=== PATIENT | female | born 2000 | race Caucasian/White ===

== ENCOUNTER 2025-02-21 18:02 | Emergency (ER) | payer MEDICAID, SELFPAY ==
--- NOTE | ~2025-02-21 | US_ITS ---
CLINICAL HISTORY: GB, , CBD, RUQ pain US GALLBLADDER Comparison: None Findings: The common bile duct measures 2.7 mm. No gallbladder stones or sludge. No gallbladder wall thickening or pericholecystic fluid. There is no sonographic Mcclellan sign. IMPRESSION: 1. No cholelithiasis, acute cholecystitis or common bile ductal dilatation. This document has been electronically signed by: June Arcos DO on 02/21/2025 20:10:07
[2025-02-21 18:14] VITALS: BP 117/66; PULSE 86; RESP 18; TEMP 36.7; O2SAT 100; BMI 40.6
--- NOTE | 2025-02-21 18:14 | ED.PREGNANCY ---
HPI - General Chief complaint: General Medical Stated complaint: rt side pain/7mo Time Seen by Provider: 02/21/25 18:27 Source: patient Limitations: no limitations History of Present Illness ED Provider: Milli Hunt PA-C HPI Narrative: 25-year-old female who is currently approximately 28 weeks , presents with abdominal pain since earlier today. Pain over right upper quadrant with radiation to the mid back, her symptoms are intermittent. Patient describes the discomfort as a cramping sensation. Associated dysuria and nausea. Denies fever. Patient thinks her symptoms may have occurred after eating a meal. Denies history of kidney stones or gross hematuria. No vaginal discharge or bleeding. Related Data Previous Rx's ?Medication ?Instructions ?Recorded sucralfate 100 mg/mL oral 10 ml PO QID PRN indigestion #300 02/21/25 suspension (Carafate) mL Allergies Allergy/AdvReac Type Severity Reaction Status Date / Time No Known Allergies Allergy Verified 02/21/25 18:15 Review of Systems Review of Systems: Yes all other systems are reviewed and are negative Constitutional: Constitutional: Denies fatigue and Denies fever(s) Cardiovascular: Cardiovascular: Denies chest pain and Denies dyspnea Respiratory: Respiratory: Denies cough and Denies dyspnea Gastrointestinal: Gastrointestinal: Reports abdominal pain, Reports nausea and Denies vomiting Genitourinary: Genitourinary: Denies hematuria, Reports dysuria, Denies pelvic pain and Denies vaginal discharge Endocrine: Endocrine: Denies fatigue PMFSH Past Medical History Attestation statement: The following information was validated with the patient. Social History Social History Smoked in Last 30 Days: No Use of substances other than those prescribed or required for medical reasons: No Advance Directives: No Advance Directives Information Provided: No Do you have a plan to hurt others: No Plan Patient : Yes Physical Exam Vital Signs: Vital Signs: Last Vital Signs Temp 98.0 F 02/21/25 18:14 Pulse 86 02/21/25 18:14 Resp 16 02/21/25 18:54 BP 117/66 02/21/25 18:14 Pulse Ox 100 02/21/25 18:14 O2 Del Method Room Air 02/21/25 18:14 BMI result Body Mass Index 40.6 Const: Other: Alert Orientation/consciousness: patient oriented x3 Resp: Effort & Inspection: normal respiratory effort Cardio: Other: Normal peripheral perfusion GI: Other: Abdomen is soft, mild tenderness that has focal to the right upper abdomen without guarding Skin: Other: Warm dry no rash Neuro: General: patient oriented x3, gait normal, no focal motor deficits and CN's II-XI intact bilaterally Psych: Other: Calm cooperative Course Course Course Narrative: This is a Rapid Medical Exam performed in triage by Caprice Montenegro PA-C. Full HPI, ROS and PE to be performed by primary ED provider. 25 yo F @ 28 wks gestation presenting to the ED c/o right sided abd pain and back pain, intermittent, x 12noon today. OBGYN in [place]. +frequent urination & pressure when she urinates. denies vaginal bleeding or d/c. Plans to deliver at [facility] PE: gravid uterus, abd soft & nontender Plan: Labs, UA Medical Decision Making Medical Decision Making [facility] Narrative: 25-year-old female who is currently approximately 28 weeks , presents with abdominal pain since earlier today. Pain over right upper quadrant with radiation to the mid back, her symptoms are intermittent. Patient describes the discomfort as a cramping sensation. Associated dysuria and nausea. Denies fever. Patient thinks her symptoms may have occurred after eating a meal. Denies history of kidney stones or gross hematuria. No vaginal discharge or bleeding. Patient also states she has had intermittent constipation throughout her , last bowel movement yesterday, it was minimal. Problem: History: Per patient I have considered the following differential diagnoses: Renal colic, pyelonephritis, UTI, biliary colic, cholecystitis Plan: Given distribution of discomfort I am considering underlying biliary pathology versus renal colic. Performed bedside renal ultrasound, the patient has mild hydronephrosis which is bilateral, this is likely physiologic from her . No CVA tenderness, is afebrile, likely not renal colic as she is very well-appearing. Screening labs including LFTs and a urinalysis, serum quant we will be obtained. Obtaining an ultrasound of the right upper quadrant. At this time the patient is asymptomatic. She does not require antiemetic or analgesia. I have independently reviewed the following tests: Labs: No leukocytosis, not anemic, no electrolyte abnormality, LFTs are normal, beta hCG 7672, urine not infected Ultrasound right upper quadrant:Findings: The common bile duct measures 2.7 mm. No gallbladder stones or sludge. No gallbladder wall thickening or pericholecystic fluid. There is no sonographic Mcclellan sign. IMPRESSION: 1. No cholelithiasis, acute cholecystitis or common bile ductal dilatation. This document has been electronically signed by: June Arcos DO on 02/21/2025 20:10:07 Lab Data 02/21/25 18:28 02/21/25 18:28 Labs: Lab Results 02/21/25 02/21/25 Range/Units 18:28 19:18 WBC 9.8 (4.8-10.8) X10*3/uL RBC 3.89 L (4.20-5.50) X10*6/uL Hgb 11.0 L (12.0-16.0) g/dl Hct 31.9 L (37.0-47.0) % MCV 82.0 (80.0-98.0) fL MCH 28.3 (27.0-33.0) pg MCHC 34.5 (31.0-35.0) g/dl RDW 13.2 (11.0-16.0) % Plt Count 221 (160-400) X10*3/uL MPV 9.7 (9.4-12.3) fL Immature Gran % (Auto) 0.2 (0.0-0.4) % Neut % (Auto) 69.0 (45-73) % Lymph % (Auto) 23.1 (20-40) % [place] % (Auto) 5.9 (2-11) % Eos % (Auto) 1.6 (0-4) % Baso % (Auto) 0.2 (0-2) % Lymph # (Auto) 2.3 (1.2-4.9) X10*3/uL [place] # (Auto) 0.6 (0.1-1.2) X10*3/uL Eos # (Auto) 0.2 (0.0-0.4) X10*3/uL Baso # (Auto) 0.0 (0.0-0.2) X10*3/uL Abs Immat Gran (auto) 0.02 (0.00-0.03) X10*3/uL Absolute Neuts (auto) 6.7 (2.0-8.3) x10*3/uL Absolute Nucleated RBC 0.000 (0.0-0.012) X10*3/uL Nucleated RBC % (auto) 0.0 (0.0-0.2) /100WBC Sodium 138 (135-145) mmol/L Potassium 3.4 (3.3-5.1) mmol/L Chloride 107 (96-108) mmol/L Carbon Dioxide 24 (22-29) mmol/L Anion Gap 10 L (12-20) BUN 4 L (9-16) mg/dL Creatinine 0.48 L (0.5-1.4) mg/dL Estim Creat Clear Calc 176.4 Estimated GFR > 60 Random Glucose 86 (60-115) mg/dL Calcium 9.3 (8.4-10.2) mg/dL Magnesium 1.8 (1.6-2.6) mg/dL Total Bilirubin 0.2 (0.0-1.0) mg/dL Direct Bilirubin < 0.2 (0.0-0.5) mg/dL AST 17 (5-31) U/L ALT 13 (0-31) U/L Alkaline Phosphatase 97 (39-117) U/L Total Protein 7.2 (6.5-8.0) g/dL Albumin 3.9 (3.5-5.0) g/dL Lipase 31 (8-78) U/L Beta HCG, Quant 7672 mIU/mL Urine Color Yellow Urine Appearance Clear Urine pH 7.0 (5.0-9.0) Ur Specific [place] 1.010 (1.005-1.025) Urine Protein Negative (Neg-Trace) mg/dL Urine Glucose (UA) Negative (Negative) mg/dL Urine Ketones Negative (Negative) mg/dL Urine Blood Negative (Negative) Urine Nitrite Negative (Negative) Ur Leukocyte Esterase Negative (Negative) Procedures Procedure Narrative Procedure Narrative: Bedside heart rate obtained via nursing Doppler, heart rate 138 active activity visualized on my bedside ultrasound Renal ultrasound Mild bilateral hydro,bladder volume approximately 500 ml Discharge Plan Discharge Clinical Impression: and not yet delivered in third trimester, Constipation, Abdominal pain Patient Disposition: Home, Self-Care Instructions: Constipation (ED), Abdominal Pain in (ED) Additional Instructions: All of your screening labs were normal including urinalysis. The ultrasound of your abdomen was normal as well, you do not have an infection of the gallbladder there were also no gallstones. Given you are having constipation, with upper abdominal discomfort, this is likely indigestion. See home care instructions. Use the Carafate as needed for upper abdominal discomfort, use the OTC milk of magnesia per package instructions, until you begin having normal bowel movements. Continue to follow up with your field sales engineer. Prescriptions: New sucralfate [Carafate] 100 mg/mL suspension 10 ml PO QID PRN (Reason: indigestion) Qty: 300 0RF Rx Instructions: swish in mouth and swallow; use after food/drink Print Language: Emirati
[2025-02-21 18:31] LABS: MANUAL DIFF FLAG NO
[2025-02-21 18:35] LABS: Basophils Percent Auto 0.2 % (0-2); Eosinophils Absolute Auto 0.2 X10*3/uL (0.0-0.4); Eosinophils Percent Auto 1.6 % (0-4); Hematocrit 31.9 % (37.0-47.0); Imm Gran Abs Auto 0.02 X10*3/uL (0.00-0.03); Imm Gran Pct Auto 0.2 % (0.0-0.4); Lymphocytes Absolute Auto 2.3 X10*3/uL (1.2-4.9); Lymphocytes Percent Auto 23.1 % (20-40); Mean Corpuscular HGB Conc 34.5 g/dl (31.0-35.0); Mean Corpuscular Hemoglobin 28.3 pg (27.0-33.0); Mean Platelet Volume 9.7 fL (9.4-12.3); Monocytes Absolute Auto 0.6 X10*3/uL (0.1-1.2); Monocytes Percent Auto 5.9 % (2-11); Neutrophils Absolute Auto 6.7 x10*3/uL (2.0-8.3); Platelet Count 221 X10*3/uL (160-400); Red Blood Count 3.89 X10*6/uL (4.20-5.50); Red Cell Distribution Width 13.2 % (11.0-16.0); White Blood Count 9.8 X10*3/uL (4.8-10.8)
--- OUTSIDE RECORDS SUMMARY | 2025-02-21 18:43 | XMS_ITS | Clinical Summary ---
Author Organization [facility] Address [address] [place] [address] Phone Care Team Providers Care Fitter Type Bar And Segment Name Role Phone Unavailable Primary Care Provider Unavailabl e Allergies No known active allergies Medications No known medications Active Problems Problem Noted Date Diagnosed Date Acne 12/13/2015 Assessment & Plan (06/02/2017 2:19 PM EDT): Pt with papular acne on face - forehead and cheeks. Some small pustules. Currently using an OTC acne face wash. Recommended changing to Benzoyl Peroxide 5% wash. Also ordered topical tretinoin to be used in thin layer. Recommended starting both treatments as [id number] use, may increased to daily as tolerated. Stop use if skin becomes red or irritated. Follow-up in 6 weeks for re-check. Handout with instructions provided. Body mass index, pediatric, greater than or equal to 95th percentile for age 1108/18/2010 Assessment & Plan (06/02/2017 2:05 PM EDT): Discussed BMI and associated risks. Pt is currently not very active. Reviewed exercise and dietary recommendations at length to promote health choices. Immunizations Immunization Administration Dates Next Due DTaP / HiB / IPV 08/12/2010 HPV, Quadrivalent 12/15/2013,09/08/2013,01/29/20 10 Hep A, ped/adol 09/16/2011,01/10/2010 Hep B, ped/adol 08/10/2011,08/12/2010,01/10/2010 IPV 08/10/2011,08/12/2010,01/28/2010 Influenza, injectable, triva lent, preservative free 09/17/2014 Influenza, intranasal, trivalent 12/13/2015,03/2013,08/18/2010 MMR 09/16/2011,01/10/2010 Meningococcal Conj (Menactra) MCV4P 06/02/2017,1 11/09/2012 PPD Test 08/18/2010 Td (adult) (MBL), 2 Lf tetan us toxoid, PF, adsorbed 09/08/2013,01/28/2010 Tdap 08/10/2011 Varicella 09/16/2011,01/10/2010 Social History Tobacco Use Types Packs/Day Years Used Date Smoking Tobacco: Never Comments:Never Smoker Alcohol Use Standard Drinks/Week Comments No 0 (1 standard drink = 0.6 oz pur e alcohol) Comments No Sex and Gender Information Value Date Recorded Sex Assigned at Not on file Legal Sex Female 4:16 PM EST Gender Identity Not on file Sexual Orientation Not on file Last Filed Vital Signs Vital Sign Reading Time Taken Comments Blood Pressure 110/80 06/02/2017 9:14 AM EDT Pulse 88 06/02/2017 9:14 AM EDT Temperature 37.1 ??C (98.7 ??F) 02/14/2016 3:28 PM ED T Respiratory Rate - - Oxygen Saturation - - Inhaled Oxygen Concentration - - Weight 76.4 kg (168 lb 8 oz) 06/02/2017 9:14 AM EDT Height 149.9 cm (4' 11 ) 06/02/2017 9:14 AM EDT Body Mass Index 34.03 06/02/2017 9:14 AM EDT Plan of Treatment Health Maintenance Due Date Last Done Comments DTaP,Tdap,and Td Vaccines (5 - Td or Tdap) 09/08/2023 09/08/2013, 08/10/2011, 08/12/2010, Additional history exists Influenza Vaccines (#1) 2024 12/13/19 16, 09/17/2014, 09/08/2013, Additional history exists COVID-19 Vaccine ( season) 2024 HIB Vaccines Aged Out 08/12/2010 No longer eligi ble based on patient's age to complete this topic Hepatitis B Vaccines Completed 08/10/2011, 08/12/2010, 01/10/2010 IPV Vaccines Completed 08/10/2011, 06/2010, 08/12/2010, Additional history exists Hepatitis A Vaccines Completed 09/16/2011, 01/11/20 10 MMR Vaccines Completed 09/16/2011, 01/10/2010 Varicella Vaccines Completed 09/16/2011, 01/10/2010 HPV Vaccines Completed 12/15/2013, 03/2013, 01/28/2010 Meningococcal Vaccine Completed 06/02/2017, 013 Men B Vaccine Aged Out No longer elig ible based on patient's age to complete this topic Pneumococcal Vaccine Aged Out No long er eligible based on patient's age to complete this topic
--- OUTSIDE RECORDS SUMMARY | 2025-02-21 18:43 | XMS_ITS | Clinical Summary ---
Author Organization [email or web address] [facility] Address [address] [place] [address] [address] [place] [address] Care Team Providers Care Perpetual Inventory Clerk Name Role Phone Unavailable Primary Care Provider Unavailabl e Allergies No known active allergies Medications No known medications Social History Tobacco Use Types Packs/Day Years Used Date Smoking Tobacco: Never Smokeless Tobacco: Never Tobacco Cessation:Counseling Given: Not Answered Comments Unknown Sex and Gender Information Value Date Recorded Sex Assigned at Female 08/03/2022 10:33 AM EDT Legal Sex Female 10:33 AM EDT Gender Identity Female 08/03/2022 10:33 AM EDT Sexual Orientation Choose not to disclose 2021 10:33 AM EDT Last Filed Vital Signs Vital Sign Reading Time Taken Comments Blood Pressure 124/77 02/18/2023 8:07 AM EDT Pulse 77 02/18/2023 8:07 AM EDT Temperature - - Respiratory Rate - - Oxygen Saturation - - Inhaled Oxygen Concentration - - Weight - - Height - - Body Mass Index - - Plan of Treatment Health Maintenance Due Date Last Done Comments Dental X-Ray: Full Mouth 2000 Depression Screening 2000 HIV Screening 2000 Lipid Panel 2000 SDOH Screening 2000 Disability Screening 2000 Alcohol/Substance Use Screening 2012 Family Planning (PISQ) 02/14/2015 Hepatitis C Screening 02/14/2018 Pap Smear 02/14/2021 Dental Oral Exam 08/22/2023 02/18/2023, 12/15/2017 Dental Prophylaxis 08/22/2023 02/18/2023, 12/15/2017 Dental X-Ray: Bitewings 02/20/2024 02/18/2023, 12/15 Tobacco Screening 03/16/2024 03/16/2023 COVID-19 Vaccine (4 - season) 2024 11/28/2021, 01/20/2021, 12/28/2020 Influenza Vaccine (#1) 2024 6, 09/17/2014, 09/08/2013, Additional history exists DTaP/Tdap/Td Vaccines (6 - Td or Tdap) 03/30/2033 03/30/2023, 09/08/2013, 08/10/2011, Additional history exists Zoster Vaccines (1 of 2) 02/14/2050 RSV Patients and Patients Aged 60 years or older (1 - 1-dose 75+ series) 02/14/2075 HIB Vaccines Aged Out 08/12/2010 No longer eligi ble based on patient's age to complete this topic Hepatitis B Vaccines Completed 08/10/2011, 08/12/2010, 01/10/2010 IPV Vaccines Completed 08/10/2011, 06/2010, 08/12/2010, Additional history exists Hepatitis A Vaccines Completed 09/16/2011, 01/11/20 10 HPV Vaccines Completed 12/15/2013, 03/2013, 01/28/2010 Meningococcal Vaccine Completed 06/02/2017, 013 Meningococcal B Vaccine Aged Out No l onger eligible based on patient's age to complete this topic Pneumococcal Vaccine: Pediatrics (0 to 5 Years) and At-Risk Patients (6 to 49) Years) Aged Out No longer eligible based on patient's age to complete this topic RSV under 20 months Aged Out No longe r eligible based on patient's age to complete this topic Rotavirus Vaccines Aged Out No longer eligible based on patient's age to complete this topic Procedures Procedure Name Priority Date/Time Associated Diagnosis Comments PROPHYLAXIS - ADULT Routine 02/18/2023 8 :00 AM EDT Encounter for dental examination BITEWINGS - 4 RADIOGRAPHIC IMAGES Routine 02/18/2023 8:00 AM EDT Encounter for dental examination PERIODIC ORAL EVALUATION - ESTABLISHED PATIENT Routine 02/18/2023 8:00 AM EDT from Last 3 Months or Most Recently Relevant to Health Maintenance Insurance [place] ADULT DENTAL - [facility] FULL (MEDICAID)
--- OUTSIDE RECORDS SUMMARY | 2025-02-21 18:43 | XMS_ITS | Encounter Summary ---
Author Organization [facility] Address [address] [place] [address] Phone Care Team Providers Care Electric Switch Repairer Name Role Phone Denita Lima MD Primary Care Provider [phone] Encounter Details Date Type Department Care Team (Late st Contact Info) Description 12/15/2013 Nurse Only [address] [address] Social History Tobacco Use Types Packs/Day Years Used Date Smoking Tobacco: Never Assessed Comments Unknown Sex and Gender Information Value Date Recorded Sex Assigned at Not on file Legal Sex Female 4:16 PM EST Gender Identity Not on file Sexual Orientation Not on file documented as of this encounter Nursing Notes * UNKNOWN, HISTORICAL - 12/15/2013 10:49 AM EDT Hailee Marcelino 2000 NURSE NOTE/VERBAL ORDERS Office/Outpatient Visit Visit Date: Dec 15, 2013 10:49 am Provider: Binta Olvera RN (Senior Executive Assistant: Aiden Lu MD; Human Resources Benefits Specialist: Binta Olvera RN) Location: [facility]. ECTIVE: CC: Patient enters with her mother She is here for immunization. Here for HPV #2. HPI: There are no signs or symptoms of illness.. Denies any problems with previous vaccinations. Current Problems: BMI 95th %ile or more ASSESSMENT: V20.2 WCC: Immunizations only ORDERS: Procedures Ordered: Human Papilloma virus (HPV) vaccine, types 6, 11, 16, 18 (quadrivalent), 3 dose schedule, for intram (In-House) PLAN: WCC: Immunizations only IMMUNIZATIONS: Gardisil (HPV) was given at todays visit. Informed Consent: ( Given Verbal ) Return in 16 weeks for next update. Patient tolerated injection(s) well. Left office in good condition. Orders: Human Papilloma virus (HPV) vaccine, types 6, 11, 16, 18 (quadrivalent), 3 dose schedule, for intram (In-House) Patient Recommendations: For WCC: Immunizations only: Immunizations for Todays isit; ^ HPV (Given) CHARGE CAPTURE: Primary Diagnosis: V20.2 WCC: Immunizations only Orders: [id number] Human Papilloma virus (HPV) vaccine, types 6, 11, 16, 18 (quadrivalent), 3 dose schedule, forintram (In-House) documented in this encounter Plan of Treatment Not on file documented as of this encounter Visit Diagnoses Not on filedocumented in this encounter Care Teams Electric Switch Repairer Relationship Specialty Start Date End Date Denita Lima MD [address] [place] [address] [address] [place] [address] PCP - General 11/23/16 03/10/20 documented as of this encounter
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
--- OUTSIDE RECORDS SUMMARY | 2025-02-21 18:43 | XMS_ITS | Encounter Summary ---
Author Organization [facility] Address [address] [place] [id number] Phone Care Team Providers Care Panel Flow Machine Operator Name Role Phone Denita Lima MD Primary Care Provider [phone] Encounter Details Date Type Department Care Team (Late st Contact Info) Description 08/20/2010 Nurse Only [address] [address] Social History Tobacco Use Types Packs/Day Years Used Date Smoking Tobacco: Never Assessed Comments Unknown Sex and Gender Information Value Date Recorded Sex Assigned at Not on file Legal Sex Female 4:16 PM EST Gender Identity Not on file Sexual Orientation Not on file documented as of this encounter Nursing Notes * UNKNOWN, HISTORICAL - 08/20/2010 10:27 AM EST Hailee Marcelino 2000 NURSE NOTE/VERBAL ORDERS Office/Outpatient Visit Visit Date: Aug 20, 2010 10:27 am Provider: Rosibel Ryan LPN (Underground Mining Section Foreman: Marcella Lebron MD; Director Of Collections: Rosibel Ryan LPN) Location: [facility]. ECTIVE: CC: Patient enters with her mother for a PPD Reading only HPI: She presents for PPD reading. PPD planted 08/18/10 Location planted: R forearm. Reaction: 0 mm induration and 0 mm erythema ASSESSMENT: V0 PPD Reading ORDERS: Other Orders: PPD Reading Only PLAN: PPD Reading PPD Reading: read as negative, no redness or swelling noted. 0 mm induration 0 mm erythema Orders: PPD Reading Only CHARGE CAPTURE: Primary Diagnosis: V0 PPD Reading Orders: PPDR PPD Reading Only documented in this encounter Plan of Treatment Not on file documented as of this encounter Visit Diagnoses Not on filedocumented in this encounter Care Teams Panel Flow Machine Operator Relationship Specialty Start Date End Date Denita Lima MD [address] [place] [address] [address] [place] [address] PCP - General 11/23/16 03/10/20 documented as of this encounter
--- NOTE | 2025-02-21 18:46 | PC.NURSE ---
Patient awake and alert. skin pwd, resp even and non labored. speaking in full, clear sentences. reports right upper abdominal pain starting at 12pm today. pain traveled into back and down into lower abdomen. reports lower back pain with urination. patient 28 weeks . reports feeling movement. denies vaginal bleeding. provider at bedside for ultrasound.
[2025-02-21 18:54] VITALS: RESP 16
[2025-02-21 18:57] LABS: Alanine Aminotransferase 13 U/L (0-31); Albumin Level 3.9 g/dL (3.5-5.0); Alkaline Phosphatase 97 U/L (39-117); Anion Gap 10 (12-20); Aspartate Amino Transferase 17 U/L (5-31); Bilirubin Direct < 0.2 mg/dL (0.0-0.5); Bilirubin Total 0.2 mg/dL (0.0-1.0); Blood Urea Nitrogen 4 mg/dL (9-16); Calcium 9.3 mg/dL (8.4-10.2); Carbon Dioxide 24 mmol/L (22-29); Chloride 107 mmol/L (96-108); Creatinine Clr Calc Pharmacy 176.4; Estimated Glomerular Filt Rate > 60; Glucose Random 86 mg/dL (60-115); Lipase 31 U/L (8-78); Magnesium 1.8 mg/dL (1.6-2.6); Potassium 3.4 mmol/L (3.3-5.1); Sodium 138 mmol/L (135-145); Total Protein 7.2 g/dL (6.5-8.0)
[2025-02-21 18:58] LABS: HCG Quantitative 7672 mIU/mL
[2025-02-21 19:27] LABS: Appearance Urine Clear; Color Urine Yellow; Glucose Urine UA Negative (Negative); Leukocyte Esterase Urine Negative (Negative); Nitrite Urine Negative (Negative); Urine Blood Negative (Negative); Urine Ketones Negative (Negative); Urine Protein Negative (Neg-Trace)
[2025-02-21 21:21] VITALS: BP 104/56; PULSE 73; RESP 16; TEMP 36.2; O2SAT 100
[2025-02-21] MEDS: Sucralfate Oral Suspension 1 GM/10 ML ORAL.SUSP PO (21:25)
[2025-02-21] MEDS: Milk of Magnesia 30 ML ORAL.SUSP PO (21:25)
[2025-02-21 21:28] VITALS: BP 104/56; PULSE 73; RESP 16; TEMP 36.2; O2SAT 100
== END 2025-02-21 21:29 | disposition home or self-care (01) ==
PROVIDERS: Physician Assistant; Emergency Provider Emergency Medicine
DX: O26.93 Pregnancy related conditions, unspecified, third trimester (principal); K59.00 Constipation, unspecified; R10.2 Pelvic and perineal pain; Z3A.28 28 weeks gestation of pregnancy; Z79.899 Other long term (current) drug therapy
CPT/HCPCS: 36415; 76705; 80048; 80076; 81003; 83690; 83735; 84702; 85025; 99284

== ENCOUNTER → 2025-02-21 19:13 | Outpatient (BNV) | payer MEDICAID, SELFPAY | PROVIDERS: Emergency Provider Emergency Medicine; Visit Provider Radiology Diagnostic Radiology | DX: R10.11 Right upper quadrant pain (principal) | CPT/HCPCS: 76705 ==